=== PATIENT | female | born 1985 | race Caucasian/White ===

== ENCOUNTER 2023-12-12 08:00 | Outpatient (CLI) | payer OTHER ==
--- NOTE | 2023-12-13 13:57 | XRAY Report ---
PROCEDURE: Ankle 3+V LT INDICATIONS: SPRAIN OF LEFT ANKLE TECHNIQUE: 3 views of the ankle were acquired. COMPARISON: None. FINDINGS: Bones: No fractures or dislocations. Ankle mortise is normally aligned. No suspicious bony lesions . Plantar and dorsal calcaneal enthesophytes. Soft tissues: Small tibiotalar joint effusion. Achilles tendon appears normal. IMPRESSION: No acute bony abnormality, with a small effusion. If there remains a high clinical concern for fractu re, consider cross-sectional imaging now. If pain persists, consider repeat x-ray in 10-14 days or cr oss-sectional imaging. Reviewed by: Jw Ivy MD on 12/13/2023 1:56 PM PST Approved by: Jw Ivy MD on 12/13/2023 1:56 PM [facility] Station ID: [id number]
--- NOTE | 2023-12-13 20:10 | XRAY Report ---
PROCEDURE: Foot 3+V LT INDICATIONS: LEFT FOOT PAIN TECHNIQUE: 3 views of the foot were obtained. COMPARISON: None FINDINGS: Bones: No fractures or dislocations. No suspicious bony lesions. Moderate calcaneal spur. Ununited fifth metatarsal apophysis may be sequelae of prior Salter fracture Soft tissues: Unremarkable. No radiopaque foreign body. IMPRESSION: No acute fracture or foreign body. Ununited fifth metatarsal apophysis may be sequelae of prior trauma. Reviewed by: Clarke Uriarte MD on 12/13/2023 7:09 PM [facility] Approved by: Clarke Uriarte MD on 12/13/2023 7:09 PM [facility] Station ID: [id number]
== END 2023-12-12 23:59 | disposition home or self-care (01) ==
LOC: DI.S 08:00
PROVIDERS: ATTEND Emergency Medicine
DX: S93.412A Sprain of calcaneofibular ligament of left ankle, initial encounter (principal); S92.352K Displaced fracture of fifth metatarsal bone, left foot, subsequent encounter for fracture with nonunion; M25.472 Effusion, left ankle